=== PATIENT | male | born 1970 | race Caucasian/White ===

== ENCOUNTER 2024-01-09 17:01 | Emergency (ER) | payer BC, SELFPAY ==
[2024-01-09 17:02] VITALS: BP 107/75; PULSE 100; RESP 18; TEMP 37.6; O2SAT 98; BMI 28.7
--- NOTE | 2024-01-09 17:58 | RAD_ITS ---
INDICATION: cough EXAMINATION/TECHNIQUE: X-RAY - XR Chest 1 View COMPARISON: FINDINGS: LINES/DEVICES: None. LUNGS: Possible mild effusion/atelectasis in the right lung base. No pneumothorax. MEDIASTINUM AND CARDIOVASCULAR STRUCTURES: Cardiac silhouette not enlarged. Central airways and mediastinal contour are unremarkable. BONES AND SOFT TISSUES: Unremarkable. RAD/Chest 1 View (Portable) IMPRESSION: Possible mild effusion/atelectasis in the right lung base. Electronically Signed: John Joseph DO at 18:43 EST ,
--- NOTE | 2024-01-09 18:33 | EDS_ITS ---
HPI History of Present Illness Chief Complaint: Weakness Detail of Chief Complaint: Cough, right-sided chest pain Informant: patient Narrative Narrative: Patient present secondary to cough, congestion, vomiting, diarrhea. He states he started to feel ill [place] evening and it progressed throughout the weekend. He now has cough with right-sided chest pain with cough. 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 He has had subjective fevers and chills. [facility] Medical History (Updated 01/09/24 @ 19:[address] Daniella Desouza MD) Encounter for examination required by Department of Transportation (DOT) Home Medications ergocalciferol (vitamin D2) 1,250 mcg (50,000 unit) capsule 1,250 mcg PO DAILY 01/09/24 [History Last Taken Unknown] escitalopram oxalate 20 mg tablet 20 mg PO DAILY 01/09/24 [History Last Taken Unknown] esomeprazole magnesium 40 mg capsule,delayed release 40 mg PO DAILY 01/09/24 [History Last Taken Unknown] Allergy/AdvReac Type Severity Reaction Status Date / Time Iodinated Contrast Media Allergy Intermediate Hives Verified 01/09/24 17:05 Surgical History History of pneumonectomy Social History Smoking Status: Never smoker ROS ROS ED Constitutional Constitutional ED: Reports chills, fever(s) and subjective Eyes Eyes: Denies change in vision or discharge from eye(s) ENT ENT ED: Denies discharge from eye(s), rhinorrhea or sore throat Cardiovascular Cardiovascular: Reports chest pain; Denies palpitations Respiratory/Chest Respiratory/Chest: Reports cough and dyspnea Gastrointestinal Gastrointestinal: Reports diarrhea, nausea and vomiting; Denies abdominal pain Genitourinary Genitourinary ED: Denies dysuria Musculoskeletal Musculoskeletal: Reports myalgias; Denies back pain or extremity pain Integumentary Denies Abrasions or rash Neurologic Neurologic: Denies headache(s) or weakness Psychiatric Psychiatric: Denies anxiety or depression Allergic/Immunologic Allergic/Immunologic ED: Denies lip swelling or urticaria EXAM Physical Exam Const Vital Signs: 01/09/24 17:02 01/09/24 18:41 Temperature 99.7 F H Temperature Source Temporal Pulse Rate 100 Respiratory Rate 18 Respiratory Effort Normal Non-Labored Respiratory Pattern Normal Blood Pressure 107/75 Blood Pressure Mean 85 Pulse Ox 98 Oxygen Delivery Method Room Air Positive well nourished and well developed General Appearance ED: well developed HEENT Reports moist mucous membranes Eyes EOMs intact bilaterally Chest Wall inspection of chest normal and palpation of chest normal Resp normal respiratory effort and clear to auscultation bilaterally Cardio regular rate and regular rhythm GI non-tender Palpation: soft Extremity normal to inspection Neuro oriented x3 and no sensory deficits noted Motor Exam: strength 5/5 throughout Psych mental status grossly normal Skin no rashes or lesions noted MDM MDM MDM Narrative Medical decision making narrative: Swab for COVID, influenza, and RSV obtained. Chest x-ray obtained to evaluate for acute lung pathology, cardiac size, or mediastinal abnormality. Patient's temperature here is 99.7 TA. He will be given dose of Tylenol. Radiography Chest X-Ray - ED: 1 View, Read by ED Physician and - (Small pleural effusion of the right base. Scar tissue noted to the right upper lung. No focal infiltrate.) Diagnostic Testing: Clinical Impression(s) from Imaging Studies Chest X-Ray 01/09/24 17:58 IMPRESSION: Possible mild effusion/atelectasis in the right lung base. Electronically Signed: John Joseph DO at 18:43 EST Reading Location ID and State: [facility] / [place] Tel [phone], Service support , Treatment and Re-Evaluation :: Chest x-ray per my interpretation was a small right pleural effusion. Scar tissue noted to the right upper lung. Radiology interpretation reviewed and agrees. Of note, the patient did have right middle and right lower lobe removed previously. Swab for COVID and RSV is negative. Patient does test positive for influenza A. Test results discussed with the patient. I will write him a work note that he may return once free of fever for 24 hours. I do feel that his right-sided chest pain is secondary to coughing with scar tissue. I do not think he needs further lab work or imaging studies. Return instructions provided. Discharge Plan Triage Chief Complaint: Weakness ED Provider: Daniella Desouza Dx/Rx/DC Orders Clinical Impression: Influenza A Instructions: ED Influenza (Adult) Primary Care Provider: Simon Physician,No Primary Referrals: Care Physician,No Primary [Primary Care Provider] - Disposition Disposition: Home, Self Care
[2024-01-09] MEDS: Acetaminophen 500 MG Tablet 1000 MG PO (18:43)
[2024-01-09 19:47] VITALS: BP 105/84; PULSE 80; RESP 18; TEMP 36.9; O2SAT 95
== END 2024-01-09 19:51 | disposition home or self-care (01) ==
PROVIDERS: Emergency Provider Emergency Medicine; Visit Provider Emergency Medicine
DX: J10.1 Influenza due to other identified influenza virus with other respiratory manifestations (principal); Z90.2 Acquired absence of lung [part of]
CPT/HCPCS: 71045; 87631; 99282